=== PATIENT | female | born 1995 | race Two or more races ===

== ENCOUNTER → 2022-10-17 13:46 | Outpatient (CLI) | payer OTHER | END | disposition home or self-care (01) | LOC: LAB 10-11 15:15 | PROVIDERS: ATTEND Preventive Medicine Occupational Medicine | DX: Z02.1 Encounter for pre-employment examination (principal) ==

== ENCOUNTER 2023-01-27 01:06 | Outpatient (CLI) | payer OTHER | END 2023-01-27 01:16 | disposition home or self-care (01) | LOC: PPH VACUNA 01:06 | PROVIDERS: ATTEND Emergency Medicine Pediatric Emergency Medicine | DX: Z23 Encounter for immunization (principal) | CPT/HCPCS: 90686; G0008 ==

== ENCOUNTER 2023-03-19 16:10 | Emergency (ER) | payer OTHER ==
[~2023-03-19] VITALS: Ht 160 cm; Wt 71.2 kg
[2023-03-19 16:32] LABS: HEMATOCRIT 38.3 % (36.0-45.00); HEMOGLOBIN 13.5 g/dL (12.0-15.00); MEAN CELL VOLUME 88.4 fL (80.00-100.00); MEAN CORPUSCULAR HEMOGLOBIN 31.2 pg (27.00-32.0); MEAN CORPUSCULAR HGB CONC 35.3 g/dl (32.0-36.0); PLATELET COUNT 283 K/uL (150-450); RED BLOOD COUNT 4.33 M/uL (4.00-6.00); RED CELL DISTRIBUTION WIDTH 12.9 % (11.5-14.5)
== END 2023-03-19 18:52 | disposition home or self-care (01) ==
LOC: ER 16:10
PROVIDERS: General Practice
DX: J06.9 Acute upper respiratory infection, unspecified (principal); Z20.822 Contact with and (suspected) exposure to COVID-19

== ENCOUNTER 2023-11-23 09:21 | Emergency (ER) | payer OTHER ==
[~2023-11-23] VITALS: Ht 162.6 cm; Wt 65.3 kg
[2023-11-23 09:59] LABS: HEMATOCRIT 40.4 % (36.0-45.00); HEMOGLOBIN 14.1 g/dL (12.0-15.00); MEAN CELL VOLUME 91.3 fL (80.00-100.00); MEAN CORPUSCULAR HEMOGLOBIN 31.9 pg (27.00-32.0); MEAN CORPUSCULAR HGB CONC 34.9 g/dl (32.0-36.0); PLATELET COUNT 290 K/uL (150-450); RED BLOOD COUNT 4.43 M/uL (4.00-6.00); RED CELL DISTRIBUTION WIDTH 12.6 % (11.5-14.5)
[2023-11-23 11:25] LABS: HCG QUANTITATIVE < 1 mUI/mL (1-3)
== END 2023-11-23 13:07 | disposition home or self-care (01) ==
LOC: ER 09:21
PROVIDERS: Emergency Medicine
DX: R00.0 Tachycardia, unspecified (principal)

== ENCOUNTER 2024-03-05 04:00 | Outpatient (CLI) | payer OTHER | END 2024-03-05 04:15 | disposition home or self-care (01) | LOC: PPH VACUNA 04:00 | PROVIDERS: ATTEND Emergency Medicine Pediatric Emergency Medicine | DX: Z23 Encounter for immunization (principal) ==

== ENCOUNTER 2024-05-25 08:35 | Emergency (ER) | payer OTHER ==
[~2024-05-25] VITALS: Ht 162.6 cm; Wt 68.0 kg
[2024-05-25] MEDS ORDERED: ONDANSETRON HCL 2 MG/ML VIAL IV ONE (08:45)
[2024-05-25] MEDS ORDERED: 0.9 % SODIUM CHLORIDE 1,000 ML IV ONE (08:45)
[2024-05-25] MEDS ORDERED: PANTOPRAZOLE SODIUM 40 MG/VIAL VIAL IV ONE (08:45)
[2024-05-25] MEDS ORDERED: CHOLESTYRAMINE/ASPARTAME LIGHT 4 G/PKT PACKET PO ONE (09:00)
[2024-05-25 09:48] LABS: HEMATOCRIT 39.8 % (36.0-45.00); HEMOGLOBIN 13.7 g/dL (12.0-15.00); MEAN CELL VOLUME 91.2 fL (80.00-100.00); MEAN CORPUSCULAR HEMOGLOBIN 31.5 pg (27.00-32.0); MEAN CORPUSCULAR HGB CONC 34.5 g/dl (32.0-36.0); PLATELET COUNT 269 K/uL (150-450); RED BLOOD COUNT 4.36 M/uL (4.00-6.00)
[2024-05-25] MEDS ORDERED: ZOFRAN8 MG PO (10:51)
[2024-05-25] MEDS ORDERED: PEPCID AC20 MG PO (10:51)
== END 2024-05-25 11:04 | disposition home or self-care (01) ==
LOC: ER 08:35
PROVIDERS: General Practice
DX: R19.7 Diarrhea, unspecified (principal)

== ENCOUNTER 2024-08-28 03:08 | Emergency (ER) | payer OTHER ==
[~2024-08-28] VITALS: Ht 162.6 cm; Wt 65.8 kg
[~2024-08-28 03:08] MED LIST: PEPCID AC20 MG PO; ZOFRAN8 MG PO
[2024-08-28 04:07] LABS: INFLUENZA A AG NEGATIVE (NEGATIVE)
[2024-08-28 04:11] LABS: COVID-19 AG NEGATIVE (NEGATIVE)
[2024-08-28] MEDS ORDERED: OSELTAMIVIR PHOSPHATE 75 MG CAPSULE PO ONE (05:25)
[2024-08-28 07:01] LABS: HEMATOCRIT 39.5 % (36.0-45.00); HEMOGLOBIN 13.4 g/dL (12.0-15.00); MEAN CELL VOLUME 92.4 fL (80.00-100.00); MEAN CORPUSCULAR HEMOGLOBIN 31.4 pg (27.00-32.0); PLATELET COUNT 263 K/uL (150-450); RED BLOOD COUNT 4.28 M/uL (4.00-6.00); RED CELL DISTRIBUTION WIDTH 12.5 % (11.5-14.5)
[2024-08-28] MEDS ORDERED: OSEL75CA PO (07:03)
== END 2024-08-28 10:55 | disposition home or self-care (01) ==
LOC: ER 03:08
PROVIDERS: General Practice
DX: J10.1 Influenza due to other identified influenza virus with other respiratory manifestations (principal); R53.81 Other malaise; Z20.822 Contact with and (suspected) exposure to COVID-19

== ENCOUNTER 2024-10-20 05:17 | Emergency (ER) | payer OTHER ==
[~2024-10-20] VITALS: Ht 167.6 cm; Wt 59.0 kg
[~2024-10-20 05:17] MED LIST changes: +OSEL75CA PO
[2024-10-20] MEDS ORDERED: KETOROLAC TROMETHAMINE 60 MG VIAL IM ONE (05:29)
[2024-10-20] MEDS ORDERED: KETOROLAC TROMETHAMINE 60 MG VIAL IM STA (05:29)
[2024-10-20] MEDS ORDERED: TRAMADOL HCL 50 MG TABLET PO STA (05:30)
== END 2024-10-20 09:25 | disposition home or self-care (01) ==
LOC: ER 05:17
DX: S62.647A Nondisplaced fracture of proximal phalanx of left little finger, initial encounter for closed fracture (principal); V49.88XA Car occupant (driver) (passenger) injured in other specified transport accidents, initial encounter; Y93.89 Activity, other specified; Y92.413 State road as the place of occurrence of the external cause; S62.643A Nondisplaced fracture of proximal phalanx of left middle finger, initial encounter for closed fracture

== ENCOUNTER 2025-02-20 15:31 | Outpatient (CLI) | payer OTHER | END 2025-02-20 15:41 | disposition home or self-care (01) | LOC: PPH VACUNA 15:31 | PROVIDERS: ATTEND Emergency Medicine Pediatric Emergency Medicine | DX: Z23 Encounter for immunization (principal) ==

== ENCOUNTER 2025-04-15 02:34 | Emergency (ER) | payer OTHER ==
[~2025-04-15] VITALS: Ht 162.6 cm; Wt 68.0 kg
[2025-04-15 03:59] LABS: BASO % 1.1 % (0.1-1.2); EOS # 0.04 (0.04-0.54); EOS % 0.5 % (0.7-7.0); LYMPH # 2.55 (1.18-3.74); LYMPH % 30.5 % (19.3-53.1); MEAN PLATELET VOLUME 11.30 fl (9.4-12.4); MONO # 0.87 (0.24-0.82); MONO % 10.4 % (4.7-12.5); NEUT # 4.80 (1.56-6.13); NEUT % 57.3 % (34.0-71.1); RED CELL DISTRIBUTION WIDTH 11.7 % (11.6-14.4)
[2025-04-15] MEDS ORDERED: MONTELUKAST SODIUM 10 MG TABLET PO STA (04:14)
[2025-04-15 04:19] LABS: COVID-19 AG NEGATIVE (NEGATIVE)
== END 2025-04-15 05:52 | disposition home or self-care (01) ==
LOC: ER 02:34
PROVIDERS: Physician Assistant Medical
DX: J00 Acute nasopharyngitis [common cold] (principal); R68.89 Other general symptoms and signs; Z20.822 Contact with and (suspected) exposure to COVID-19